=== PATIENT | male | born 1995 | race Two or more races ===

== ENCOUNTER 2018-12-05 12:29 | Emergency (ER) | payer OTHER ==
[~2018-12-05] VITALS: Ht 177.8 cm; Wt 74.8 kg
[2018-12-05 12:32] VITALS: BP 130/66
[2018-12-05] MEDS ORDERED: MELO7.5T29 PO (12:50)
--- NOTE | 2018-12-05 12:50 | PHYS DOC ---
Past History Past Medical History: No Pertinent History Past Surgical History: No Surgical History Smoking: Non-smoker Alcohol Use: Occasionally Drug Use: None Adult General Chief Complaint Chief Complaint: FINGER INJURY [facility] HPI Patient is a 23-year-old male presents with a left index finger injury. 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 He is right-hand dominant. No numbness or tingling. No pulsatile bleeding. Direct pressure makes symptoms better. Nothing seems to make them worse. No numbness or tingling. Symptoms are mild to moderate.[] Review of Systems Review of Systems Constitutional: Denies fever or chills [] Eyes: Denies change in visual acuity, redness, or eye pain [] HENT: Denies nasal congestion or sore throat [] Respiratory: Denies cough or shortness of breath [] Cardiovascular: No additional information not addressed in HPI [] GI: Denies abdominal pain, nausea, vomiting, bloody stools or diarrhea [] : Denies dysuria or hematuria [] Musculoskeletal: Denies back pain or joint pain [] Integument: Denies rash, see history of present illness[] Neurologic: Denies headache, focal weakness or sensory changes [] Endocrine: Denies polyuria or polydipsia [] All other systems were reviewed and found to be within normal limits, except as documented in this note. Allergies Allergies Allergies Coded Allergies Type Severity Reaction Last Updated Verified No Known Drug Allergies 12/05/18 No Physical Exam Physical Exam Constitutional: Well developed, well nourished, no acute distress, non-toxic appearance. [] HENT: Normocephalic, atraumatic, bilateral external ears normal, oropharynx moist, no oral exudates, nose normal. [] Eyes: PERRLA, EOMI, conjunctiva normal, no discharge. [] Neck: Normal range of motion, no tenderness, supple, no stridor. [] Cardiovascular:Heart rate regular rhythm, no murmur [] Lungs & Thorax: Bilateral breath sounds clear to auscultation [] Abdomen: Not examined. [] Skin: Warm, dry, no erythema, no rash. [] Back: No tenderness, no CVA tenderness. [] Extremities: Left index finger, radial aspect, distal phalanx, there is a wound involving removal of tissue. Also involving distal radial aspect of the nail. There is no suturable wound. FDS, FDP, and extensor mechanisms are intact. 2 point discrimination is less than 5 mm. Capillary refills less than 2 seconds. No tenderness, no cyanosis, no clubbing, ROM intact, no edema. [] Neurologic: Alert and oriented X 3, normal motor function, normal sensory function, no focal deficits noted. [] Psychologic: Affect normal, judgement normal, mood normal. [] EKG EKG [] Radiology/Procedures Radiology/Procedures [] Course & Med Decision Making Course & Med Decision Making Pertinent Labs and Imaging studies reviewed. (See chart for details) ED course: Patient arrived, was placed in bed, and tolerated exam well. After ev aluation, he was dressed with a nonadherent dressing and placed in tube gauze. There was no bleeding. Discussed findings and plan with patient who voiced understanding. All questions were answered. Medical decision making: Patient removed the top layers of the skin without a deep incision or suturable wound. We will treat with conservative therapy. There is no evidence of foreign body. No evidence of neurologic or vascular injury. Patient was dicing cooked lauren when this happened, do not see indication for antibiotics at this time.[] Dragon Disclaimer Dragon Disclaimer This electronic medical record was generated, in whole or in part, using a voice recognition dictation system. Departure Departure: Impression: Primary Impression: Laceration of left index finger Disposition: 01 HOME, SELF-CARE Condition: STABLE Referrals: PCP,UNKNOWN (PCP) Patient Instructions: Wound Care, [id number] Additional Instructions: Follow-up with your regular doctor [facility] doctor in 2 days for a wound check. Return to the ER if increasing pain, redness, purulent drainage, or any other concerns. Scripts Meloxicam (MELOXICAM) 7.5 Mg Tablet 7.5 MG PO DAILY for PAIN, #20 TAB Prov: TIFFANY ELIZONDO DO 12/05/18 Problem Qualifiers Primary Impression: Laceration of left index finger Encounter type: initial encounter Damage to nail status: with damage Foreign body presence: without foreign body Qualified Codes: S61.311A - Laceration without foreign body of left index finger with damage to nail, initial encounter TIFFANY ELIZONDO DO Dec 05, 2018 12:50
== END 2018-12-05 12:58 | disposition home or self-care (01) ==
LOC: ER 12:29
DX: S61.211A Laceration without foreign body of left index finger without damage to nail, initial encounter (principal); W26.0XXA Contact with knife, initial encounter; Y93.89 Activity, other specified; Y92.89 Other specified places as the place of occurrence of the external cause; Y99.8 Other external cause status
CPT/HCPCS: 99283